=== PATIENT | male | born 1955 | race Hispanic/Latino ===

== ENCOUNTER 2020-12-07 12:37 | Day surgery (SDC) | payer OTHER ==
[~2020-12-07] VITALS: Ht 165.1 cm; Wt 71.4 kg
[~2020-12-07 12:37] MED LIST: AK-CON15 ML OPTH; ALPHA LIPOIC A300 MG PO; COZAAR50 MG PO; DOCUSATE SODIU250 MG PO; HYDROCODON-ACE1 EA10 PO; IBUPROFEN600 MG PO; MOBIC15 MG PO; NORTRIPTYLINE H25 MG PO; NORVASC10 MG PO; OMEPRAZOLE20 MG PO; SEBEX SHAMPOO118 ML TOP; SYNTHROID75 MCG PO; TRIXAICIN60 GM TOP; TYLENOL EXTRA500 MG PO; VICODIN 5-3001 EACH PO; [UNRECOGNIZED DRUG - OTHER] OP
[2020-12-07] MEDS ORDERED: AMLODIPINE BESY10 MG PO (14:00)
[2020-12-07] MEDS ORDERED: AZELAIC ACID50 GM TOP (14:01)
[2020-12-07] MEDS ORDERED: CETIRIZINE HCL10 MG PO (14:02)
[2020-12-07] MEDS ORDERED: CLOBETASOL PROP50 ML TOP (14:03)
[2020-12-07] MEDS ORDERED: DOXYCYCLINE MO100 MG PO (14:06)
[2020-12-07] MEDS ORDERED: LOSARTAN POTASS50 MG PO (14:07)
[2020-12-07] MEDS ORDERED: LEVOTHYROXINE75 MC1 PO (14:07)
[2020-12-07] MEDS ORDERED: OMEPRAZOLE20 MG PO (14:08)
[2020-12-07] MEDS ORDERED: LAXATIVE PEG 3510 GM PO (14:09)
[2020-12-07] MEDS ORDERED: PROPRANOLOL HCL40 MG PO (14:11)
--- NOTE | 2020-12-07 15:16 | NUR ---
12/07/20 1516 Sheets,Loren 1509 PT ARRIVED TO PACU AND WAKES EASILY AND DENIES PAIN AND NAUSEA. VSS. PT ENCOURAGED TO PASS GAS/AIR. VSS.
--- NOTE | 2020-12-09 12:37 | OR ---
[facility] [address] [place], [place] [address] Signed DATE OF OPERATION: 12/07/2020 SURGEON: Yoon Orr MD PREOPERATIVE DIAGNOSES: 1. Persistent anorectal pain with rectal bleeding. 2. History of prior anal fissure (healed without surgical intervention). POSTOPERATIVE DIAGNOSES: 1. Sigmoid and left-sided diverticulosis. 2. Internal hemorrhoids. No evidence of current anal fissure. PROCEDURE: Total colonoscopy to cecum. ANESTHESIA: Intravenous sedation; fentanyl 100 mcg and Versed 4 mg. INDICATION: This 65-year-old man is a prisoner at [facility] and a patient of ADÁN Berger. He is known to me from the past having findings of an anal fissure, which ultimately healed without surgical intervention, though he did undergo exam under anesthesia, anticipating lateral internal sphincterotomy. Notably, the sphincterotomy was not performed. He did have some thrombosis of hemorrhoids, which were excised at that time. He has recently been complaining of anal/abdominal pain as well as perineal saddle type distribution pain. Clinical examination did not show anal fissure, though he still has complaints suggestive of it. He has also had some amount of rectal bleeding and on that basis, I have recommended colonoscopy for evaluation for polyps and neoplasm as well as close inspection of the anorectal area for possible recurrent fissure or hemorrhoidal disease or other causes of his symptoms. He understands the risks of colonoscopy including, but not limited to bleeding, infection, and perforation and wished to proceed. FINDINGS: The prep was good. Complete colonoscopy was undertaken to the cecum without question. He had numerous diverticula of the sigmoid and left colon. There was no evidence of polyps or cancer. He had no colitis. Retroflexed view did confirm internal hemorrhoidal changes. Careful inspection both with the scope and with manual separation of the anorectal folds showed no sign of activefissure at this time. He had no evidence of perirectal abscess. Electronically Signed By: YOON ORR MD 12/09/20 1237 PATIENT NAME: ELBA BUTLER OPERATIVE REPORT DATE OF : 59 REPORT #: [id number] PHYSICIAN: YOON ORR MD PCP: MAXIMINO KWON REPORT IS CONFIDENTIAL AND NOT TO BE RELEASED WITHOUT AUTHORIZATION [facility] [address] [place] [address] Signed DESCRIPTION OF PROCEDURE: The patient was brought to the endoscopy suite and placed in lateral decubitus position, given intravenous sedation to the point of slurred speech and nystagmus. Anorectal examination was undertaken using the colonoscope for illumination. I saw no evidence of posterior or anterior anal fissure and no sign of prolapsed hemorrhoidal disease. There was no sign of perianal infection. The Olympus video colonoscope was passed in the rectum after lubrication and manipulated throughout the colon noting diverticula of the sigmoid and left colon. Scope was ultimately passed to the cecum. The ileocecal valve and appendiceal orifice were normal. There was no sign of colitis. The scope was withdrawn from that point. Careful inspection showed no sign of abnormality other than diverticular change of the left and sigmoid colon. Upon withdrawal to the rectum, retroflexed view was undertaken confirming some internal hemorrhoidal change. Careful withdrawal of scope through the anal canal failed to show any evidence of ongoing or recurrent fissure. Hemorrhoidal changes were noted however. The scope was removed and the patient was taken to the recovery room in good condition. CONCLUDING DIAGNOSIS: Persistent anorectal pain and episodic rectal bleeding, likely related to hemorrhoids. No evidence of anal fissure recurrence at this time. Also, noted to have diverticulosis. PLAN: 1. At this point, we would recommend diltiazem 2% ointment to be applied b.i.d. Notably, I had recommended this at his clinic visit in the alf and it is unclear whether or not he actually had that done. In particular, the medication associated with the chart from the present today does not show diltiazem currently being given. 2. Maintain high fiber diet via Metamucil 1 packet daily and have additional fluids. We would recommend to see the patient back in the alf clinic next time I am there to review his progress and so on. MD SHALINI Ivy/MODL /[id number] Electronically Signed By: YOON ORR MD 12/09/20 1237 PATIENT NAME: ELBA BUTLER OPERATIVE REPORT DATE OF : 59 REPORT #: [id number] PHYSICIAN: YOON ORR MD PCP: MAXIMINO KWON REPORT IS CONFIDENTIAL AND NOT TO BE RELEASED WITHOUT AUTHORIZATION [address] [address] Signed cc: ADÁN Coleman Copies: MAXIMINO KWON ~ Electronically Signed By: YOON ORR MD 12/09/20 1237 PATIENT NAME: ELBA BUTLER OPERATIVE REPORT DATE OF : 59 REPORT #: [id number] PHYSICIAN: YOON ORR MD PCP: MAXIMINO KWON REPORT IS CONFIDENTIAL AND NOT TO BE RELEASED WITHOUT AUTHORIZATION
== END 2020-12-07 15:55 | disposition home or self-care (01) ==
LOC: OPS 12:37 → DS 12:40 → OPS 13:00
PROVIDERS: ATTEND Surgery
PROC: 0DJD8ZZ Inspection of Lower Intestinal Tract, Via Natural or Artificial Opening Endoscopic (ICD-10-PCS; principal; 2020-12-07 14:00)
DX: K62.5 Hemorrhage of anus and rectum (principal); K62.89 Other specified diseases of anus and rectum; R10.2 Pelvic and perineal pain; K64.8 Other hemorrhoids; K57.30 Diverticulosis of large intestine without perforation or abscess without bleeding; I10 Essential (primary) hypertension; K21.9 Gastro-esophageal reflux disease without esophagitis; Z20.822 Contact with and (suspected) exposure to COVID-19
CPT/HCPCS: 99153; C9803; G0500; J2250; J3010; U0003